=== PATIENT | female | born 1980 | race Caucasian/White ===

== ENCOUNTER 2017-06-14 13:01 | Observation (INO) | payer OTHER ==
--- NOTE | 2017-06-14 13:09 | EDPHY ---
H & P Source: Patient, Family () Exam Limitations: No limitations Time Seen by Provider: 06/14/17 13:08 HPI/ROS: HPI: This is a 36-year-old female who presents with Chief Complaint: Back pain Location: Bilateral lower back Quality: Injury Duration: 1 hr prior to arrival Signs and Symptoms: No bleeding, no radiation, no numbness, no weakness, no tingling, no incontinence, + decreased range of motion, no swelling, + pain Timing: Acute Severity: Severe Context: Patient was diagnosed with influenza B two days ago; started Tamiflu yesterday; has been in the bed the majority of the time. Went to help her child to tie her shoe and bent down and felt a deep sharp, pulling sensation described as " ripping of the skin" in her bilateral lower back. She fell to the ground and needed her 's assistance to move from a squatting to standing position. She reports that after the pulling sensation in her back she felt like she had pins and needles running down bilateral arms. Her had to steady her to use the restroom. She admits that she has not been drinking fluids today as much as she should. Denies radiation/weakness. Denies neck stiffness/headache/abdominal pain/nausea/vomiting/weakness/facial numbness. Father was the physician related to patient that she needed to be evaluated for Maria Ines Daniel syndrome. Modifying Factors: Comment: ROS: see HPI Constitutional: No fever, no chills, no weight loss Eyes: No blurred vision Respiratory: No shortness of breath, no cough Cardiovascular: No chest pain Gastrointestinal: No nausea, no vomiting no diarrhea Genitourinary: No dysuria Extremities: No myalgias Neurologic: No weakness, no numbness Skin: No rashes Hematologic: No bruising, no bleeding MEDICAL/SURGICAL/SOCIAL HISTORY: Medical history: Generally healthy. Does not take any regular medications. Surgical history: Denies Social history: . Has children. Family history noncontributory CONSTITUTIONAL: Well-appearing adult white female, awake and alert, no obvious distress HEENT: Atraumatic and normocephalic. NECK: supple, no midline tenderness, flexion 45 degrees, extension 45 degrees, right and left lateral flexion 45 degrees. No meningismus. Cardiovascular: Normal S1/S2, regular rate, regular rhythm, without murmur rub or gallop. PULMONARY/CHEST: Symmetrical and nontender. no crepitus. Clear to auscultation bilaterally. Good air movement. No accessory muscle usage. ABDOMEN: Soft, nondistended, nontender, no ecchymosis. PELVIC: no pain with rocking; bilateral hips flexion 125 degrees, extension 30 degrees, with no pain internal rotation and no pain external rotation. BACK: No midline tenderness, moderate bilateral lumbar paraspinous reproducible tenderness, no paraspinous spasm, deep tendon reflexes 2/2, moderate pain with straight leg raise, moderate pain with flexion attempt; discomfort lying supine on the ER stretcher. EXTREMITIES: 2/2 pulses, strength 5/5, DIP/PIP/MCP flexion/extension intact with good light touch sensation. no deformities, no clubbing, no cyanosis or edema. NEUROLOGICAL: no focal neuro deficits. GCS 15. Light touch sensation intact. SKIN: Warm and dry, no erythema. no rash. Good capillary refill. (Oma Blevins) Constitutional: Initial Vital Signs Temperature (C) 36.5 C 06/14/17 13:13 Heart Rate 89 06/14/17 13:13 Respiratory Rate 16 06/14/17 13:13 Blood Pressure 138/76 H 06/14/17 13:13 O2 Sat (%) 97 06/14/17 13:13 O2 Delivery Mode Room Air Allergies/Adverse Reactions: amoxicillin Allergy (Verified 06/14/17 13:13) penicillin G Allergy (Verified 06/14/17 13:12) Sulfa (Sulfonamide Antibiotics) Allergy (Verified 06/14/17 13:13) Home Medications: Medication Instructions Recorded Cyclobenzaprine [Flexeril 10 MG 10 mg PO TID PRN #15 tab 06/14/17 (*)] Tamiflu 06/14/17 oxyCODONE/APAP 5/325 [Percocet 1 - 2 tab PO Q6H PRN #12 tab 06/14/17 5/325 (*)] Medical Decision Making - Diagnostics Imaging Results: Imaging Impressions Lumbar Spine X-Ray 06/14/17 13:11 Impression: Normal. Cervical Spine MRI 06/14/17 17:10 Impression: 1. C5-C6: Moderate to severe left neural foraminal stenosis and mild central canal stenosis secondary to left neural foraminal uncovertebral disk/osteophyte complex, mild degenerative disk disease, and small dorsal disk/osteophyte complex. Please correlate with left C6 radiculopathy. 2. No cord compression or edema. 3. Please see above findings at specific disk levels. Lumbar Spine MRI 06/14/17 17:10 Impression: 1. L4-L5: Mild central canal stenosis secondary to small central disk herniation mild bilateral facet arthropathy. 2. T12-L1: Small right paramedian disk/osteophyte complex causing minimal central canal stenosis. 3. Please see above findings at specific disk levels. Findings and recommendations discussed with Emergency Department physician, Oma Blevins at 19:09 hour, 06/14/2017. Final report concurs with initial preliminary interpretation. ED Course/Re-evaluation: Patient has influenza B; on Tamiflu; with low oral intake and back injury. Given 1 L normal saline, p.o. Valium, IV Decadron and laboratory studies ordered. No neurological deficits/No signs of neurovascular compromise/tenting of skin/ compartment syndrome/extremities and joints examined above and below area of concern and are neurovascularly intact/Guillain [place]/Sepsis. 1345: Notified by lab that Blood hemolyzed; had to redraw blood 1600: Reassessed patient; complaining of mild relief of pain. Given IV Dilaudid and IV Toradol. 30 min later able mildly flex hips and legs. Now remember that she had numbness and tingling in both of her arms when she moved from the stretcher to the table for her x-ray earlier. Her father is a pie bottomer and is requesting MRI of her cervical and lumbar spine. 1630: Reviewed labs and unremarkable. 1711: End of Shift. Signed over To ESTHER Eagle pending MRI results. This patient was seen under the supervision of my secondary supervising physician. I evaluated care for this patient independently. Discussed this patient with Dr. Rosales who did not see the patient. (Oma Blevins) I assumed care of this patient from Oma Blevins PA-C at end of shift. We were awaiting MRI results. These were obtained and largely unremarkable. She was further treated for back pain. On re-evaluation at 8:00 p.m. pain persists. I have repeated a neurologic evaluation; strength, sensation, reflexes remain intact. However she is unable to ambulate secondary to pain. She has been treated with extensive amounts of medications with poor results. Ultimately the decision was made to admit for symptomatic care. She will be admitted Dr. Brantley of the hospitalist service. Plan has been discussed with the patient who voiced understanding and agreement. (Star Eagle) Differential Diagnosis: Back pain including but not limited to muscular pain, herniated disc, spine fracture, intra-abdominal causes and urinary tract infection. (Oma Blevins) - Data Points Laboratory Results: Laboratory Results 06/14/17 15:48 06/14/17 14:43 06/14/17 06/14/17 06/14/17 16:38 15:48 14:43 WBC 5.03 10^3/uL 10^3/uL (3.80-9.50) RBC 4.76 10^6/uL 10^6/uL (4.18-5.33) Hgb 14.5 g/dL g/dL (12.6-16.3) Hct 43.7 % % (38.0-47.0) MCV 91.8 fL fL (81.5-99.8) MCH 30.5 pg pg (27.9-34.1) MCHC 33.2 g/dL g/dL (32.4-36.7) RDW 12.7 % % (11.5-15.2) Plt Count 166 10^3/uL 10^3/uL (150-400) MPV 9.6 fL fL (8.7-11.7) Neut % (Auto) 85.1 % H % (39.3-74.2) Lymph % (Auto) 11.5 % L % (15.0-45.0) [place] % (Auto) 2.8 % L % (4.5-13.0) Eos % (Auto) 0.2 % L % (0.6-7.6) Baso % (Auto) 0.2 % L % (0.3-1.7) Nucleat RBC Rel Count 0.0 % % (0.0-0.2) Absolute Neuts (auto) 4.28 10^3/uL 10^3/uL (1.70-6.50) Absolute Lymphs (auto) 0.58 10^3/uL L 10^3/uL (1.00-3.00) Absolute Monos (auto) 0.14 10^3/uL L 10^3/uL (0.30-0.80) Absolute Eos (auto) 0.01 10^3/uL L 10^3/uL (0.03-0.40) Absolute Basos (auto) 0.01 10^3/uL L 10^3/uL (0.02-0.10) Absolute Nucleated RBC 0.00 10^3/uL 10^3/uL (0-0.01) Immature Gran % 0.2 % % (0.0-1.1) Immature Gran # 0.01 10^3/uL 10^3/uL (0.00-0.10) ESR 7 MM/HR MM/HR (0-20) Sodium Potassium Chloride Carbon Dioxide Anion Gap BUN Creatinine Estimated GFR Glucose Calcium Creatine Kinase 44 IU/L IU/L (0-156) Beta HCG, Qual Urine Color YELLOW Urine Appearance CLEAR Urine pH 5.0 (5.0-7.5) Ur Specific [place] 1.008 (1.002-1.030) Urine Protein NEGATIVE (NEGATIVE) Urine Ketones TRACE H (NEGATIVE) Urine Blood 2+ H (NEGATIVE) Urine Nitrate NEGATIVE (NEGATIVE) Urine Bilirubin NEGATIVE (NEGATIVE) Urine Urobilinogen NEGATIVE EU EU (0.2-1.0) Ur Leukocyte Esterase NEGATIVE (NEGATIVE) Urine RBC 5-10 /hpf H /hpf (0-3) Urine WBC 1-3 /hpf /hpf (0-3) Ur Epithelial Cells TRACE /lpf /lpf (NONE-1+) Urine Mucus TRACE /lpf /lpf (NONE-1+) Urine Glucose NEGATIVE (NEGATIVE) 06/14/17 06/14/17 06/14/17 14:43 14:43 14:43 WBC REJ RBC Not Reported Hgb Not Reported Hct Not Reported MCV Not Reported MCH Not Reported MCHC Not Reported RDW Not Reported Plt Count Not Reported MPV Not Reported Neut % (Auto) Not Reported Lymph % (Auto) Not Reported [place] % (Auto) Not Reported Eos % (Auto) Not Reported Baso % (Auto) Not Reported Nucleat RBC Rel Count Not Reported Absolute Neuts (auto) Not Reported Absolute Lymphs (auto) Not Reported Absolute Monos (auto) Not Reported Absolute Eos (auto) Not Reported Absolute Basos (auto) Not Reported Absolute Nucleated RBC Not Reported Immature Gran % Not Reported Immature Gran # Not Reported ESR Sodium 143 mEq/L mEq/L (135-145) Potassium 4.0 mEq/L mEq/L (3.5-5.2) Chloride 109 mEq/L mEq/L (97-110) Carbon Dioxide 22 mEq/l mEq/l (22-31) Anion Gap 12 mEq/L mEq/L (8-16) BUN 14 mg/dL mg/dL (7-23) Creatinine 0.6 mg/dL mg/dL (0.6-1.0) Estimated GFR > 60 Glucose 84 mg/dL mg/dL (70-100) Calcium 8.7 mg/dL mg/dL (8.5-10.4) Creatine Kinase Beta HCG, Qual NEGATIVE Urine Color Urine Appearance Urine pH Ur Specific [place] Urine Protein Urine Ketones Urine Blood Urine Nitrate Urine Bilirubin Urine Urobilinogen Ur Leukocyte Esterase Urine RBC Urine WBC Ur Epithelial Cells Urine Mucus Urine Glucose Medications Given: Discontinued Medications Dexamethasone (Decadron Injection) 8 mg IVP EDNOW ONE Stop: 06/14/17 13:12 Last Admin: 06/14/17 13:37 Dose: 8 mg Diazepam (Valium) 5 mg IVP EDNOW ONE Stop: 06/14/17 13:12 Last Admin: 06/14/17 14:17 Dose: Not Given Diazepam (Valium) 5 mg PO EDNOW ONE Stop: 06/14/17 13:22 Last Admin: 06/14/17 13:37 Dose: 5 mg Fentanyl (Sublimaze) 50 mcg IVP EDNOW ONE Stop: 06/14/17 19:49 Last Admin: 06/14/17 20:12 Dose: 50 mcg Hydromorphone HCl (Dilaudid) 1 mg IVP EDNOW ONE Stop: 06/14/17 15:37 Last Admin: 06/14/17 15:59 Dose: 1 mg Sodium Chloride (Ns) 1,000 mls @ 0 mls/hr IV EDNOW ONE; Wide Open PRN Reason: Protocol Stop: 06/14/17 13:12 Last Admin: 06/14/17 13:38 Dose: 1,000 mls Sodium Chloride (Ns) 1,000 mls @ 0 mls/hr IV EDNOW ONE; Wide Open PRN Reason: Protocol Stop: 06/14/17 14:20 Last Admin: 06/14/17 15:15 Dose: 1,000 mls Ketorolac Tromethamine (Toradol) 30 mg IVP EDNOW ONE Stop: 06/14/17 15:38 Last Admin: 06/14/17 16:00 Dose: 30 mg Oxycodone/Acetaminophen (Percocet 5/325mg Prepack#4) 1 btl TAKEHOME EDNOW ONE Stop: 06/14/17 19:49 Last Admin: 06/14/17 20:18 Dose: 1 btl Departure - Departure Disposition: [facility] Inpatient Acute Clinical Impression: Influenza Back pain Qualifiers: Back pain location: low back pain Chronicity: acute Back pain laterality: bilateral Sciatica presence: without sciatica Qualified Code(s): M54.5 - Low back pain Condition: Good
[2017-06-14] MEDS ORDERED: DIAZEPAM 10 MG/2 ML SYR IVP ONE (13:11)
[2017-06-14] MEDS ORDERED: DEXAMETHASONE 4 MG/ML VIAL IVP ONE (13:11)
[2017-06-14] MEDS ORDERED: NS 1,000 ML IV ONE ×2 (13:11→14:19)
[2017-06-14] MEDS ORDERED: DIAZEPAM 5 MG TAB ONE (13:19)
[2017-06-14] MEDS ORDERED: DIAZEPAM 5 MG TAB PO ONE (13:21)
[2017-06-14] MEDS ORDERED: HYDROmorphONE/DILAUDID 1 MG/ML INJ IVP ONE (15:36)
[2017-06-14] MEDS ORDERED: KETOROLAC 30 MG/1 ML SDV IVP ONE (15:37)
[2017-06-14 15:54] LABS: PLATELET COUNT 166 10^3/uL (150-400)
[2017-06-14] MEDS ORDERED: OXYCODONE/APAP 5/325MG PREPACK#4 BTL TAKEHOME ONE (19:48)
[2017-06-14] MEDS ORDERED: fentaNYL 100 MCG/2 ML INJ IVP ONE (19:48)
[2017-06-14] MEDS ORDERED: HYDROCODONE/APAP 5/325 TAB PO PRN (22:38)
[2017-06-14] MEDS ORDERED: PROMETHAZINE HCL 25 MG/ML INJ IVP PRN (22:38)
[2017-06-14] MEDS ORDERED: ONDANSETRON 4 MG/2 ML VIAL IVP PRN (22:38)
[2017-06-14] MEDS ORDERED: ACETAMINOPHEN 325 MG TAB PO PRN (22:38)
[2017-06-14] MEDS ORDERED: DIAZEPAM 5 MG TAB PO PRN (22:40)
[2017-06-14] MEDS ORDERED: CYCLOBENZAPRINE 10 MG TAB PO PRN (22:40)
[2017-06-15] MEDS: KETOROLAC 15 MG/1 ML SDV IVP SCH ×3 (00:56→11:57)
--- NOTE | 2017-06-15 02:08 | PDGENHP ---
History and Physical - Chief Complaint back pain - History of Present Illness Source - patient provides history and appears reliable. HPI - Pleasant 36 yo F with pmhx significant for hypothyroidism and otherwise healthy who presents to the ED today with c/o severe intractable lower back pain. Patient reports that earlier today she was bending down to help her daughter tie her shoes when she felt a severe pulling down her back that caused her to roll to her side. Patient reports associated radiating pain down her buttock to just above her knee. She was unable to move very well. she denies any numbness/tingling to her lower legs but this episode was accompanied by numbness/tingling in her hands bilaterally which quickly resolved. patient reports she has had several more similar episodes since that time once during xray with transfer and again during my interview. each resolves within seconds. Patient also reports an episode of hyperventilation likely related to her extreme pain. Patient remained at home for short while trying to see if her pain would improve. Her assisted her to the bathroom however on her way back patient reports that she became lightheaded and laid on the floor and thinks she passed out. She believes it was only for a few seconds as her was at her side. She denies any other known traumas in the past or head injuries. Patient has been battling flu B symptoms including cough rhinorrhea congestion sore throat which are slowly improving. Patient was started on Tamiflu 2 days ago and she reports that her coughing has subsided significantly. Patient denies any associated urinary or fecal incontinence / retention. Patient reports that her pain currently is more manageable but only if she is resting still. In the emergency department she received a dose of fentanyl, it Dilaudid, Valium, dexamethasone, Toradol. Patient reports that her pain has improved a little since arrival but she is still significantly uncomfortable with any kind of movement. She denies any current numbness tingling to her lower extremities. She did note the 1 short-lived episode of just a few seconds of numbness tingling in her hands bilaterally. History Information - Allergies/Home Medication List Allergies/Adverse Reactions: amoxicillin Allergy (Verified 06/14/17 13:13) penicillin G Allergy (Verified 06/14/17 13:12) Sulfa (Sulfonamide Antibiotics) Allergy (Verified 06/14/17 13:13) Home Medications: Herbals/Supplements -Info Only 1 ea PO DAILY 06/14/17 [Last Taken Unknown] Hydrocortisone 2.5% [Hydrocortisone 2.5% cream (*)] 1 tam TP BID 06/14/17 [Last Taken 06/14/17] Levothyroxine [Synthroid 75 mcg (*)] 75 mcg PO DAILY06 06/14/17 [Last Taken ] Minocycline HCl [Solodyn] 105 mg PO DAILY 06/14/17 [Last Taken 06/13/17] Oseltamivir Phosphate [Tamiflu 75 mg (*)] 75 mg PO BID 06/14/17 [Last Taken 09:30] I have personally reviewed and updated: family history, medical history, social history, surgical history - Past Medical History Additional medical history: Hypothyroidism, dermatitis, flu B - Surgical History Additional surgical history: x1 - Family History Additional family history: Mother with osteopenia. Both parents with herniated discs. - Social History Smoking Status: Never smoked Alcohol Use: None Drug Use: None Additional social history: Patient is lives with her and young twin daughters. Core-full Review of Systems Review of Systems: ROS: 10pt was reviewed & negative except for what was stated in HPI & below Constitutional: Reports: chills, fever, other (Night sweats times last 2 days) EENMT: Reports: nose congestion. Denies: blurred vision, sore throat Cardiac: Reports: syncope (See HPI). Denies: chest pain, edema, palpitations Respiratory: Reports: cough (Improved), other (Episode of shortness of breath and hyperventilation as per HPI.) Gastrointestinal: Reports: no symptoms. Denies: vomitting, abdominal pain, constipation, diarrhea, nausea, other Genitourinary: Denies: dysuria, hematuria Muscolosketal: Reports: muscle pain (Bilateral lower back pain.) Skin: Reports: rash (Patient currently undergoing treatment for dermatitis on her face.). Denies: change in color Neurological: Reports: anxiety, numbness (Occasional in her hands bilaterally.) . Denies: tingling, tremors, weakness Hematologic/Lymphatic: Reports: no symptoms Immunologic/Allergy: Reports: no symptoms Physical Exam Physical Exam: Selected Entries 06/14/17 13:13 Blood Pressure Automatic Method Heart Rate 89 Respiratory 16 Rate O2 Sat (%) 97 Temperature (C) 36.5 C Blood Pressure 138/76 H Mean Arterial 96 Pressure (MAP) O2 Delivery Room Air Mode Temperature Oral Source Temp Pulse Resp BP Pulse Ox 37.0 C 77 16 113/73 96 06/14/17 23:12 06/14/17 23:12 06/14/17 23:12 06/14/17 23:12 06/14/17 23:12 Constitutional: uncomfortable, other (NAD. patient lays very still in bed. appears uncomfortable.), No not in pain Eyes: PERRL, anicteric sclera, EOMI, No scleral injection Ears, Nose, Mouth, Throat: moist mucous membranes, no oral mucosal ulcers, No poor dentition Cardiovascular: regular rate and rhythym, no murmur, rub, or gallop, No edema Peripheral Pulses: 2+: dorsalis-pedis (R), dorsalis-pedis (L) Respiratory: no respiratory distress, no rales or rhonchi, clear to auscultation Gastrointestinal: normoactive bowel sounds, soft, non-tender abdomen, no palpable masses, No tenderness, No distension Genitourinary: no bladder tenderness, No worley in urethra Skin: warm, rash (face, arms), No abrasion Musculoskeletal: full muscle strength (upper extremities and distal lower extremities. pt c/o pain with movement of upper legs. ), pain with ROM (lower back. ), No generalized weakness Neurologic: AAOx3, sensation intact bilaterally, weakness (2/2 pain), other ( grossly nonfocal. Unable to evaluate straight leg testing secondary to patient' s complaint of severe pain with attemps at flexion of hips. ), No numbness Psychiatric: interacting appropriately, not encephalopathic, thought process linear, anxious, No depressed Lab Data & Imaging Review 06/14/17 15:48 06/14/17 14:43 WBC 5.03 10^3/uL (3.80-9.50) 06/14/17 15:48 RBC 4.76 10^6/uL (4.18-5.33) 06/14/17 15:48 Hgb 14.5 g/dL (12.6-16.3) 06/14/17 15:48 Hct 43.7 % (38.0-47.0) 06/14/17 15:48 MCV 91.8 fL (81.5-99.8) 06/14/17 15:48 MCH 30.5 pg (27.9-34.1) 06/14/17 15:48 MCHC 33.2 g/dL (32.4-36.7) 06/14/17 15:48 RDW 12.7 % (11.5-15.2) 06/14/17 15:48 Plt Count 166 10^3/uL (150-400) 06/14/17 15:48 MPV 9.6 fL (8.7-11.7) 06/14/17 15:48 Neut % (Auto) 85.1 % (39.3-74.2) H 06/14/17 15:48 Lymph % (Auto) 11.5 % (15.0-45.0) L 06/14/17 15:[address] [place] % (Auto) 2.8 % (4.5-13.0) L 06/14/17 15:48 Eos % (Auto) 0.2 % (0.6-7.6) L 06/14/17 15:48 Baso % (Auto) 0.2 % (0.3-1.7) L 06/14/17 15:48 Nucleat RBC Rel Count 0.0 % (0.0-0.2) 06/14/17 15:48 Absolute Neuts (auto) 4.28 10^3/uL (1.70-6.50) 06/14/17 15:48 Absolute Lymphs (auto) 0.58 10^3/uL (1.00-3.00) L 06/14/17 15:48 Absolute Monos (auto) 0.14 10^3/uL (0.30-0.80) L 06/14/17 15:48 Absolute Eos (auto) 0.01 10^3/uL (0.03-0.40) L 06/14/17 15:48 Absolute Basos (auto) 0.01 10^3/uL (0.02-0.10) L 06/14/17 15:48 Absolute Nucleated RBC 0.00 10^3/uL (0-0.01) 06/14/17 15:48 Immature Gran % 0.2 % (0.0-1.1) 06/14/17 15:48 Immature Gran # 0.01 10^3/uL (0.00-0.10) 06/14/17 15:48 ESR 7 MM/HR (0-20) 06/14/17 15:48 Sodium 143 mEq/L (135-145) 06/14/17 14:43 Potassium 4.0 mEq/L (3.5-5.2) 06/14/17 14:43 Chloride 109 mEq/L (97-110) 06/14/17 14:43 Carbon Dioxide 22 mEq/l (22-31) 06/14/17 14:43 Anion Gap 12 mEq/L (8-16) 06/14/17 14:43 BUN 14 mg/dL (7-23) 06/14/17 14:43 Creatinine 0.6 mg/dL (0.6-1.0) 06/14/17 14:43 Estimated GFR > 60 06/14/17 14:43 Glucose 84 mg/dL (70-100) 06/14/17 14:43 Calcium 8.7 mg/dL (8.5-10.4) 06/14/17 14:43 Creatine Kinase 44 IU/L (0-156) 06/14/17 14:43 Beta HCG, Qual NEGATIVE 06/14/17 14:43 Urine Color YELLOW 06/14/17 16:38 Urine Appearance CLEAR 06/14/17 16:38 Urine pH 5.0 (5.0-7.5) 06/14/17 16:38 Ur Specific [place] 1.008 (1.002-1.030) 06/14/17 16:38 Urine Protein NEGATIVE (NEGATIVE) 06/14/17 16:38 Urine Ketones TRACE (NEGATIVE) H 06/14/17 16:38 Urine Blood 2+ (NEGATIVE) H 06/14/17 16:38 Urine Nitrate NEGATIVE (NEGATIVE) 06/14/17 16:38 Urine Bilirubin NEGATIVE (NEGATIVE) 06/14/17 16:38 Urine Urobilinogen NEGATIVE EU (0.2-1.0) 06/14/17 16:38 Ur Leukocyte Esterase NEGATIVE (NEGATIVE) 06/14/17 16:38 Urine RBC 5-10 /hpf (0-3) H 06/14/17 16:38 Urine WBC 1-3 /hpf (0-3) 06/14/17 16:38 Ur Epithelial Cells TRACE /lpf (NONE-1+) 06/14/17 16:38 Urine Mucus TRACE /lpf (NONE-1+) 06/14/17 16:38 Urine Glucose NEGATIVE (NEGATIVE) 06/14/17 16:38 Imaging Review: Lumbar Spine, 2 standing views History: Pain and spasm Comparison: None Findings: There are 5 lumbarized vertebral bodies. Alignment is anatomic. Disk spaces maintain normal height. No compression abnormalities identified. There is a small osteophyte associated with the anterior superior corner of L4. Overall mineralization is normal. The lumbar neural canal is congenitally normal in size. The SI joints look normal. Impression: Normal. MRI Cervical Spine (Without Contrast) History: Tingling in hands, pain, weakness. Technique: Sagittal T1, T2, axial T2, and 3D gradient echo MR sequences of the cervical spine, without contrast. Findings: Slight reversal of the normal lordotic curvature in the mid cervical spine. Cervical vertebral bodies are normal height, without compression fractures or spondylolisthesis. Cerebellar tonsils are in normal position. Cervical spinal cord demonstrates normal signal , without cord edema or myelomalacia. No craniocervical stenosis. C2-C3: No disk herniation or stenosis. C3-C4: Mild degenerative disk disease, without disk herniation or stenosis. C4-C5: Mild degenerative disk disease, with dorsal disk/osteophyte complex, resulting in mild central canal stenosis, without neural foraminal stenosis. C5-C6: Mild degenerative disk disease, with dorsal disk/osteophyte complex and left uncovertebral osteophyte, with disk osteophyte complex, resulting in moderate to severe left neural foraminal stenosis and mild central canal stenosis. No right neural foraminal stenosis. C6-C7: No disk herniation or stenosis. C7-T1: No disk herniation or stenosis. Impression: 1. C5-C6: Moderate to severe left neural foraminal stenosis and mild central canal stenosis secondary to left neural foraminal uncovertebral disk/osteophyte complex, mild degenerative disk disease, and small dorsal disk/osteophyte complex. Please correlate with left C6 radiculopathy. 2. No cord compression or edema. 3. Please see above findings at specific disk levels. MRI of the Lumbar Spine (Without Contrast) Clinical Indications: pain, weakness Technique: Sagittal and axial T1 and T2 and sagittal STIR MR sequences of the lumbar spine without contrast. Axial imaging from T12-S1. Findings: Lumbar vertebral bodies are of normal height without compression fractures. Conus medullaris appears normal and ends at L2. T11 -12: Sagittal images demonstrate no disk herniation or stenosis. T12-L1: Mild degenerative disease with small right paramedian disk/osteophyte complex resulting in minimal central canal stenosis without neural foraminal stenosis or cord compression. L1-L2: No disk herniation or stenosis. L2-L3: No disk herniation or stenosis. L3-L4: No disk herniation or stenosis. L4-L5: Mild degenerative disk disease with small central disk herniation, protrusion, and mild bilateral facet arthropathy resulting in mild central canal stenosis without neural foraminal stenosis. L5-S1: Mild bilateral facet arthropathy without disk herniation or stenosis. Benign intraosseous hemangiomata in the S2 and S3 vertebral bodies. Impression: 1. L4-L5: Mild central canal stenosis secondary to small central disk herniation mild bilateral facet arthropathy. 2. T12-L1: Small right paramedian disk/osteophyte complex causing minimal central canal stenosis. 3. Please see above findings at specific disk levels. Visualized and Interpreted imaging results: Yes Assessment & Plan Assessment: #Back pain (Acute) - due to muscle strain. Patient is status post fentanyl, morphine, Valium, dexamethasone, Toradol. Patient with reproducible pain upon palpation along with tender enlarged tight paraspinal muscles. Continue with Valium, Toradol and K-pad. I reviewed patient's MRI of the cervical and lumbar spine and noted patient with multi level degenerative disc disease/arthritis. C5-6 noted to have moderate to severe left neural foraminal stenosis. Left L4- 5 with small central disc herniation without any impingement was reviewed the patient. Given that she also has significant spasms that are palpable this is likely soft tissue in etiology related to back strain when patient was bending over forward earlier in the day. #Back strain - PT OT consultation. Encouraged core strengthening exercises once patient's acute back issue is resolved. Also encouraged proper body mechanics. #Influenza B (Acute) - continue patient's Tamiflu. #Numbness and tingling in hands- patient with intermittent episodes of numbness tingling in her fingers. She also had an episode during our interview. She appeared increasingly anxious, she had increased work of breathing and tachypnea. Her numbness tingling did resolve fairly quickly and with slowing of her breathing. Suspect a component of anxiety. #Hypothyroidism - continue levothyroxine #Hematuria-UA positive for blood however patient reports that she is ending her menses.
[2017-06-15 07:43] VITALS: RESP 16; O2SAT 96
[2017-06-15] MEDS ORDERED: OSELTAMIVIR PHOSPHATE 75 MG CAP PO SCH (09:00)
[2017-06-15] MEDS: HYDROCORTISONE 2.5% 30 GM CRTUBE TP SCH ×2 (09:26→10:50)
--- NOTE | 2017-06-15 11:23 | ASMTCMCOM ---
CM Note CM Note Notes: Pt admitted for back pain. Anticipate pt will DC with no needs. Date Signed: 06/15/2017 11:22 AM Electronically Signed By:Daja Castro LCSW
--- NOTE | 2017-06-15 11:48 | HOSPPROG ---
Hospitalist Progress Note Assessment/Plan: Patient is a 36-year-old female with a history of influenza and also has hypothyroidism. She presented the emergency room with acute back pain. Today is my 1st encounter with the patient. Chart reviewed. * acute back pain likely with associated strain -PT and OT to see -likely an element of spasms -doing much better today #Influenza B (Acute) - Tamiflu. #Numbness and tingling in hands-no further complaints #Hypothyroidism - continue levothyroxine #Hematuria-UA positive for blood however patient reports that she is ending her menses. #plan: dc home Subjective: Lia is feeling much better today. Objective: Vital Signs Temp Pulse Resp BP Pulse Ox 36.8 C 65 16 109/71 96 06/15/17 07:42 06/15/17 07:42 06/15/17 07:42 06/15/17 07:42 06/15/17 07:42 06/14/17 06/15/17 06/16/17 05:59 05:59 05:59 Intake Total 1999 Balance 1999 - Physical Exam Constitutional: no apparent distress, appears nourished, not in pain Eyes: PERRL Ears, Nose, Mouth, Throat: hearing normal Cardiovascular: regular rate and rhythym Respiratory: no respiratory distress Skin: warm Musculoskeletal: generalized weakness Neurologic: AAOx3 Psychiatric: interacting appropriately ICD10 Worksheet Patient Problems: Problems Problem Status Onset Back pain Acute Influenza Acute
[2017-06-15 11:54] VITALS: BP 109/70; PULSE 76; TEMP 97.9
--- NOTE | 2017-06-15 13:01 | GDS ---
[f rep st] DISCHARGE SUMMARY DISCHARGE DIAGNOSES: 1. Acute back pain with associated strain. 2. Influenza B. 3. Numbness and tingling in her hands. 4. Hypothyroidism. 5. Hematuria. HISTORY OF PRESENT ILLNESS: Briefly, the patient is a 36-year-old female with a recent diagnosis of influenza and a history of hypothyroidism. She presented to the emergency room with severe intractab le back pain. She was bending down to help her daughter tie her shoes when she felt a severe pulling in her back that caused her to roll to her side. It was radiating down her buttock to just above he r knee and was unable to move. In the emergency department. She received fentanyl, Dilaudid, Valium , and Decadron and Toradol. The pain had improved. Today, she was seen and evaluated by Physical Th renan, and is feeling markedly better. She had a lumbar spine performed which showed alignment is an atomic. Her disk spaces maintain normal height. No compression abnormalities identified. There is a small osteophyte associated with the anterior superior corner of L4. SI joint looks normal. In ad dition, she had a cervical and lumbar spine MRI performed. At C5-C6 she has moderate to severe left foraminal stenosis and mild central canal stenosis secondary to left neuroforaminal uncovertebral dis k osteophyte complex. She has mild degenerative disk disease and small dorsal disk osteophyte comple x. She has no cord compression or edema. Subsequently, a lumbar spine MRI was performed. This show ed at L4-L5 mitral central canal stenosis secondary to a small central disk herniation, mild bilatera l facet arthropathy at T12-L1. She has a small right paramedian disk osteophyte complex causing mini mal central canal stenosis. Today, she worked with physical therapy and is feeling markedly better. HOSPITAL COURSE PER PROBLEM: 1. Back pain, back strain, improved with Flexeril and anti-inflammatory. She has been using heat at the hospital. I am recommending ice at discharge. 2. Influenza B on Tamiflu. 3. Numbness and tingling in her hands. She has had no further complaints. 4. Hypothyroidism. Continue Synthroid. 5. Hematuria. Her urine was positive for blood. However, she is ending her menses. DISCHARGE CONDITION: Stable. Blood pressure is 109/70, heart rate is 76, respiratory rate 16, O2 sa ts on room air 96%, temperature is 36.6 Celsius. MEDICATIONS AT DISCHARGE: Please see the EMR. DISCHARGE INSTRUCTIONS: 1. To follow up with her primary care provider. 2. If she becomes incontinent of urine, stool, to return to the emergency immediately. 3. To use anti-inflammatories as well as muscle relaxants to help with her pain. 4. I have given her a prescription to get physical therapy for core strengthening. Copy requested to: Primary Care Provider /[id number]/MODL
[2017-06-16] MEDS ORDERED: LEVOTHYROXINE 75 MCG TAB PO SCH (06:00)
[2017-06-16] MEDS ORDERED: MINOCYCLINE HCL PO SCH (09:00)
== END 2017-06-15 15:55 | disposition home or self-care (01) ==
LOC: EDUNIT# → INTOOBSV 20:54 → F3N 22:00
PROVIDERS: ADMIT Internal Medicine; ATTEND Internal Medicine
DX: S39.012A Strain of muscle, fascia and tendon of lower back, initial encounter (principal); X50.0XXA Overexertion from strenuous movement or load, initial encounter; J10.1 Influenza due to other identified influenza virus with other respiratory manifestations; E86.9 Volume depletion, unspecified; R20.2 Paresthesia of skin; E03.9 Hypothyroidism, unspecified; M48.061 Spinal stenosis, lumbar region without neurogenic claudication; M51.26 Other intervertebral disc displacement, lumbar region; M48.02 Spinal stenosis, cervical region; M48.05 Spinal stenosis, thoracolumbar region; M25.78 Osteophyte, vertebrae; Z88.0 Allergy status to penicillin; Z88.2 Allergy status to sulfonamides
CPT/HCPCS: 72100; 72141; 72148; 96361; 96374; 96375; 97161; 97165; 99285; G0378; J1100; J1170; J1885; J3010